=== PATIENT | male | born 1985 | race Caucasian/White ===

== ENCOUNTER 2017-04-18 20:47 | Emergency (ER) | payer OTHER ==
[~2017-04-18] VITALS: Ht 185.4 cm; Wt 103.9 kg
[~2017-04-18 20:47] MED LIST: CLIN150C99 PO; TRETINOIN PO
[2017-04-18 20:53] VITALS: BP 121/75
--- NOTE | 2017-04-18 21:12 | NUR ---
PT TAKEN TO XRAY FROM THE LOBBY
--- NOTE | 2017-04-18 22:03 | NUR ---
PT TAKEN TO OF3
--- NOTE | 2017-04-18 22:07 | NUR ---
PA STUDENT XENA EVALUATING PATIENT
[2017-04-18] MEDS ORDERED: IBUPROFEN 600 MG TAB PO ONE (22:15)
[2017-04-18] MEDS ORDERED: ACETAMINOPHEN/CODEINE 300/30MG 1 TAB PO ONE (22:15)
[2017-04-18] MEDS ORDERED: KETOROLAC 30 MG/ML VIAL IM ONE (22:20)
[2017-04-18 23:16] VITALS: BP 125/72
--- NOTE | 2017-04-18 23:17 | NUR ---
Patient discharged with v/s stable. Written and verbal after care instructions given and explained. Patient alert, oriented and verbalized understanding of instructions. Ambulatory with steady gait. All questions addressed prior to discharge. ID band removed. Patient advised to follow up with PMD. Rx of NAPROSYN, TYLENOL WITH COD#3 given. Patient educated on indication of medication including possible reaction and side effects. Opportunity to ask questions provided and answered.
== END 2017-04-18 23:17 | disposition home or self-care (01) ==
LOC: MED 20:47
DX: S62.316A Displaced fracture of base of fifth metacarpal bone, right hand, initial encounter for closed fracture (principal); Z88.1 Allergy status to other antibiotic agents; Z88.8 Allergy status to other drugs, medicaments and biological substances; Z85.6 Personal history of leukemia; W22.8XXA Striking against or struck by other objects, initial encounter; Y93.89 Activity, other specified; Y92.89 Other specified places as the place of occurrence of the external cause; Y99.8 Other external cause status
CPT/HCPCS: 29125; 73130; 96372; 99284; J1885

== ENCOUNTER 2020-09-13 18:34 | Emergency (ER) | payer OTHER ==
[~2020-09-13] VITALS: Ht 185.4 cm; Wt 106.6 kg
[~2020-09-13 18:34] MED LIST changes: +CLIN-223 PO; -CLIN150C99 PO
[2020-09-13 19:08] VITALS: BP 131/94
--- NOTE | 2020-09-13 19:45 | NUR ---
SEEN AND EXAMINED BY PERLITA WITH ORDERS AND CARRIED OUT
--- NOTE | 2020-09-13 19:50 | NUR ---
SWAB DONE AND SENT TO LAB.
--- NOTE | 2020-09-13 21:15 | NUR ---
PTS RIGHT ANKLE WAS PLACED IN A ANKEL STIRRUP, PTS PMSC WNL. PT WAS ALSO GIVEN CRUTCHES, PT SHOWED GOOD USE OF CRUTCHES.
[2020-09-13 22:05] VITALS: BP 131/94
--- NOTE | 2020-09-13 22:05 | NUR ---
Patient discharged with v/s stable. Written and verbal after care instructions given and explained. Patient alert, oriented and verbalized understanding of instructions. Ambulatory with . All questions addressed prior to discharge. ID band removed. Patient advised to follow up with PMD. Rx of ALBUTEROL, NAPROSYN 500MG, GUAIATUSSIB AC given. Patient educated on indication of medication including possible reaction and side effects. Opportunity to ask questions provided and answered.
--- NOTE | 2020-09-15 12:48 | NUR ---
Covid results received from lab. Results = POSITIVE. Hard copy requested from lab and placed in infection controls mailbox.
== END 2020-09-13 22:05 | disposition home or self-care (01) ==
LOC: MED 18:34
DX: S93.401A Sprain of unspecified ligament of right ankle, initial encounter (principal); Z20.828 Contact with and (suspected) exposure to other viral communicable diseases; J06.9 Acute upper respiratory infection, unspecified; Z79.899 Other long term (current) drug therapy; Z88.1 Allergy status to other antibiotic agents; Z85.6 Personal history of leukemia; X58.XXXA Exposure to other specified factors, initial encounter; Y93.89 Activity, other specified; Y92.89 Other specified places as the place of occurrence of the external cause; Y99.8 Other external cause status
CPT/HCPCS: 29515; 71045; 73620; 99284; U0003

== ENCOUNTER 2021-08-06 12:24 | Emergency (ER) | payer OTHER ==
[~2021-08-06] VITALS: Ht 185.4 cm; Wt 108.0 kg
[2021-08-06 12:51] VITALS: BP 139/67
--- NOTE | 2021-08-06 13:00 | NUR ---
PT SENT TO LOBBY
--- NOTE | 2021-08-06 14:08 | NUR ---
PT AMBULATED TO BED
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
--- NOTE | 2021-08-06 14:22 | NUR ---
DR ANDERSON AT BEDSIDE EVALUATING PT
[2021-08-06] MEDS ORDERED: SULFAMETH/TRIMETH DS 800/160MG 1 TAB PO ONE (14:30)
[2021-08-06] MEDS ORDERED: ACETAMINOPHEN EXTRA STRENGTH 500 MG TAB PO ONE (14:30)
[2021-08-06] MEDS ORDERED: BACITRACIN OINT 500 UNITS/GM PKT TP ONE (14:30)
[2021-08-06] MEDS ORDERED: cephALEXin 500 MG CAP PO ONE (14:30)
[2021-08-06] MEDS ORDERED: SULF-59 PO (14:31)
[2021-08-06] MEDS ORDERED: IBUP-2213 PO (14:31)
[2021-08-06] MEDS ORDERED: CEPH-588 PO (14:31)
--- NOTE | 2021-08-06 14:35 | NUR ---
Crutches dispensed. Taught proper use, patient returned demo.
[2021-08-06 14:57] VITALS: BP 139/67
--- NOTE | 2021-08-06 14:57 | NUR ---
Patient discharged with v/s stable. Written and verbal after care instructions given and explained. Patient alert, oriented and verbalized understanding of instructions. Ambulatory with steady gait. All questions addressed prior to discharge. ID band removed. Patient advised to follow up with PMD. Rx of KEFLEX, IBUPROFEN, AND BACTRIM given. Patient educated on indication of medication including possible reaction and side effects. Opportunity to ask questions provided and answered.
== END 2021-08-06 14:57 | disposition home or self-care (01) ==
LOC: MED 12:24
DX: S81.831A Puncture wound without foreign body, right lower leg, initial encounter (principal); Z79.2 Long term (current) use of antibiotics; Z88.0 Allergy status to penicillin; Z88.1 Allergy status to other antibiotic agents; W34.09XA Accidental discharge from other specified firearms, initial encounter; Y93.89 Activity, other specified; Y92.89 Other specified places as the place of occurrence of the external cause; Y99.8 Other external cause status
CPT/HCPCS: 73590; 99284

== ENCOUNTER 2021-10-21 23:45 | Emergency (ER) | payer OTHER ==
[~2021-10-21] VITALS: Ht 185.4 cm; Wt 105.2 kg
[~2021-10-21 23:45] MED LIST changes: +CEPH-588 PO; +IBUP-2213 PO; +SULF-59 PO
[2021-10-22 00:13] VITALS: BP 116/82
--- NOTE | 2021-10-22 00:20 | NUR ---
PT IS IN TENT PER REQUEST.
[2021-10-22] MEDS ORDERED: PRED20TA5 PO (00:49)
[2021-10-22] MEDS ORDERED: LORA1T1237 PO (00:49)
[2021-10-22] MEDS ORDERED: BENZ200C4 PO (00:49)
[2021-10-22] MEDS ORDERED: PROM118S5 PO (00:49)
--- NOTE | 2021-10-22 01:00 | NUR ---
SWABS COLLECTED AND TKEN TO LAB
[2021-10-22 01:01] VITALS: BP 116/82
--- NOTE | 2021-10-22 01:01 | NUR ---
Patient discharged with v/s stable. Written and verbal after care instructions given and explained. Patient alert, oriented and verbalized understanding of instructions. Ambulatory with steady gait. All questions addressed prior to discharge. ID band removed. Patient advised to follow up with PMD. Rx of CLARITIN, PREDNISONE, AND PROMETHAZINE given. Patient educated on indication of medication including possible reaction and side effects. Opportunity to ask questions provided and answered.
== END 2021-10-22 01:01 | disposition home or self-care (01) ==
LOC: MED 23:45
DX: B34.9 Viral infection, unspecified (principal); Z20.822 Contact with and (suspected) exposure to COVID-19
CPT/HCPCS: 99283; U0003

== ENCOUNTER 2022-07-09 03:03 | Emergency (ER) | payer OTHER ==
[~2022-07-09] VITALS: Ht 185.4 cm; Wt 103.0 kg
[~2022-07-09 03:03] MED LIST changes: +BENZ200C4 PO; +LORA1T1237 PO; +PRED20TA5 PO; +PROM118S5 PO
[2022-07-09 03:11] VITALS: BP 151/96
--- NOTE | 2022-07-09 03:20 | NUR ---
PT TO BED 5 PLACED ON TERRA COTTA MOLD MAKER. ROWAND MADE AWARE.
[2022-07-09] MEDS ORDERED: LORazepam 2 MG/ML VIAL IVP ONE (03:30)
[2022-07-09 04:13] LABS: BASOPHILS % (AUTO) 0.4 % (0.0-2.0); EOSINOPHILS % (AUTO) 0.5 % (0.0-4.0); HEMATOCRIT 46.2 % (36-52); LYMPHOCYTES # (AUTO) 1.6 K/uL (2.0-11.5); MEAN CORPUSCULAR HEMOGLOBIN 33 pg (27-31); MEAN CORPUSCULAR HGB CONC 35 g/dL (33-37); MEAN CORPUSCULAR VOLUME 95.3 fL (80-94); MONOCYTES # (AUTO) 0.6 K/uL (0.8-1.0); MONOCYTES % (AUTO) 9.2 % (1.7-9.3); NEUTROPHILS # (AUTO) 3.9 K/uL (1.8-7.7); NEUTROPHILS % (AUTO) 63.9 % (42.2-75.2); PLATELET COUNT (AUTO) 230 K/uL (140-450); RED BLOOD CELL COUNT(AUTO) 4.85 MIL/uL (4.20-6.10); RED CELL DISTRIBUTION WIDTH 13.2 % (11.6-13.7); WHITE BLOOD COUNT (AUTO) 6.1 K/uL (4.8-10.8)
[2022-07-09 04:51] LABS: ALBUMIN 3.8 g/dL (3.4-5.0); ASPARTATE AMINOTRANSFERASE 13 U/L (15-37); CARBON DIOXIDE 25.2 mmol/L (21-32); CHLORIDE 103 mmol/L (98-107); CREATININE 1.1 mg/dL (0.6-1.3); GFR ARICAN-AMERICAN 97 mL/min (>90); GLUCOSE 110 mg/dL (74-106); POTASSIUM 3.2 mmol/L (3.5-5.1); SODIUM SERUM 139 mmol/L (136-145); TOTAL BILIRUBIN 0.4 mg/dL (0.0-1.0); UREA NITROGEN, BLOOD 18 mg/dL (7-18)
[2022-07-09] MEDS ORDERED: ACETAMINOPHEN EXTRA STRENGTH 500 MG TAB PO ONE (05:00)
[2022-07-09 05:53] VITALS: BP 128/76
--- NOTE | 2022-07-09 05:53 | NUR ---
Patient discharged with v/s stable. Written and verbal after care instructions given and explained. Patient verbalized understanding. Ambulatory with steady gait. All questions addressed prior to discharge. Advised to follow up with PMD.
[2022-07-10] MEDS ORDERED: IBUP-2213 PO (15:14)
[2022-07-10] MEDS ORDERED: NALO4SPR NS (15:20)
== END 2022-07-09 05:53 | disposition home or self-care (01) ==
LOC: MED 03:03
DX: F43.20 Adjustment disorder, unspecified (principal); F15.129 Other stimulant abuse with intoxication, unspecified
CPT/HCPCS: 36415; 71045; 80053; 84484; 85025; 93005; 96374; 99285; J2060; Q0092

== ENCOUNTER 2022-07-10 11:44 | Emergency (ER) | payer OTHER ==
[~2022-07-10] VITALS: Ht 185.4 cm; Wt 103.0 kg
[2022-07-10 11:55] VITALS: BP 150/110
--- NOTE | 2022-07-10 12:54 | NUR ---
pt refused covid test. notified dr millan.
[2022-07-10] MEDS ORDERED: NITROGLYCERIN 0.4 MG TAB SL ONE (12:55)
--- NOTE | 2022-07-10 12:55 | NUR ---
36 y/o male biba, pt presents to ed with c/o heart palpitations, cp, sensation "hot" in his chest. pt was here yesterday for same c/o, pt states he smoked meth yesterday again. pmh: meth use allergy: piperacillin, tazobactam med: denies
--- NOTE | 2022-07-10 12:55 | NUR ---
Patient being evaluated by DR ROSA at bedside.
[2022-07-10] MEDS ORDERED: LORazepam 1 MG TAB PO ONE (13:00)
[2022-07-10] MEDS ORDERED: KETOROLAC 60 MG/2 ML VIAL IM ONE (13:00)
[2022-07-10 13:49] LABS: BASOPHILS % (AUTO) 0.5 % (0.0-2.0); EOSINOPHILS % (AUTO) 0.5 % (0.0-4.0); HEMATOCRIT 46.3 % (36-52); LYMPHOCYTES # (AUTO) 1.4 K/uL (2.0-11.5); LYMPHOCYTES % (AUTO) 23.5 % (20.5-51.1); MEAN CORPUSCULAR HEMOGLOBIN 33 pg (27-31); MEAN CORPUSCULAR HGB CONC 35 g/dL (33-37); MEAN CORPUSCULAR VOLUME 95.3 fL (80-94); MONOCYTES # (AUTO) 0.5 K/uL (0.8-1.0); MONOCYTES % (AUTO) 8.3 % (1.7-9.3); NEUTROPHILS % (AUTO) 67.2 % (42.2-75.2); PLATELET COUNT (AUTO) 228 K/uL (140-450); RED BLOOD CELL COUNT(AUTO) 4.85 MIL/uL (4.20-6.10); RED CELL DISTRIBUTION WIDTH 13.2 % (11.6-13.7)
[2022-07-10 14:09] LABS: ANION GAP 12.6 (8-16); CARBON DIOXIDE 24.8 mmol/L (21-32); CREATININE 0.8 mg/dL (0.6-1.3); POTASSIUM 3.4 mmol/L (3.5-5.1); TOTAL BILIRUBIN 0.8 mg/dL (0.0-1.0)
--- NOTE | 2022-07-10 15:09 | NUR ---
Patient being evaluated by dr Melendez at [facility].
[2022-07-10] MEDS ORDERED: IBUP-2213 PO (15:14)
[2022-07-10] MEDS ORDERED: NALO4SPR NS (15:20)
--- NOTE | 2022-07-10 15:23 | NUR ---
Patient discharged with v/s stable. Written and verbal after care instructions given and explained. Patient alert, oriented and verbalized understanding of instructions. Ambulatory with family to car. All questions addressed prior to discharge. ID band removed. Patient advised to follow up with PMD. Rx of nalaxone, ibuprofen (sent) given. Patient educated on indication of medication including possible reaction and side effects. Opportunity to ask questions provided and answered. copy of labs, xray and mental health packet given
[2022-07-10 15:28] VITALS: BP 150/110
== END 2022-07-10 15:28 | disposition home or self-care (01) ==
LOC: MED 11:44
DX: R07.9 Chest pain, unspecified (principal); R00.2 Palpitations; F41.9 Anxiety disorder, unspecified; Z88.1 Allergy status to other antibiotic agents; Z79.899 Other long term (current) drug therapy; Z85.6 Personal history of leukemia
CPT/HCPCS: 36415; 71045; 80053; 84484; 85025; 93005; 96372; 99285; J1885

== ENCOUNTER 2022-07-19 06:20 | Emergency (ER) | payer OTHER ==
[~2022-07-19] VITALS: Ht 185.4 cm; Wt 102.5 kg
[~2022-07-19 06:20] MED LIST changes: +NALO4SPR NS
[2022-07-19 06:27] VITALS: BP 138/87
--- NOTE | 2022-07-19 06:34 | NUR ---
Patient stated "I did methamphetamines and now my chest hurts." Patient walked with strong gait to room 3, placed on monitor. Patient resting comfortably in bed.
--- NOTE | 2022-07-19 06:50 | NUR ---
ermd at bedside
[2022-07-19] MEDS ORDERED: ASPIRIN 81 MG TAB.CHEW PO ONE (06:55)
[2022-07-19] MEDS ORDERED: LORazepam 2 MG/ML VIAL IVP ONE (06:55)
[2022-07-19] MEDS ORDERED: NACL 0.9% 1,000 ML IV ONE (06:55)
--- NOTE | 2022-07-19 07:12 | NUR ---
rad at bedside
--- NOTE | 2022-07-19 07:20 | NUR ---
Report recieved from YENIFER Whittington for transfer of care.
--- NOTE | 2022-07-19 07:20 | NUR ---
46YR OLD MALE BIB SELF C/O JOSH FOOT PAIN /SI . PT IS ON A 5[address] BY [employer]. PT STATED HE WANTS TO HARM HIMSELF BY RUNNING INTO TRAFFIC. DENIES HAVING ANY SI HX. PT IS A&OX4 SKIN WARM PINK AND DRY. PT SITTING IN BED GOWN ON. HOB ELEVATED. RESP EVEN AND UNLABORED. PT HAS JOSH BLISTERING IN FEET. STATES HE HAS A CHRONIC PROBLE WITH BLISTERS IN FEET. PAIN LEVEL 10/10. FEET ART UNCOVERED AND EXPOSED TO AIR NKDA NOKNOWN HX
[2022-07-19 07:25] LABS: BASOPHILS % (AUTO) 0.5 % (0.0-2.0); EOSINOPHILS # (AUTO) 0.1 K/uL (0-0.4); EOSINOPHILS % (AUTO) 1.4 % (0.0-4.0); HEMATOCRIT 45.9 % (36-52); LYMPHOCYTES # (AUTO) 2.4 K/uL (2.0-11.5); LYMPHOCYTES % (AUTO) 35.7 % (20.5-51.1); MEAN CORPUSCULAR HEMOGLOBIN 34 pg (27-31); MEAN CORPUSCULAR HGB CONC 35 g/dL (33-37); MEAN CORPUSCULAR VOLUME 96.2 fL (80-94); MONOCYTES # (AUTO) 0.7 K/uL (0.8-1.0); MONOCYTES % (AUTO) 10.2 % (1.7-9.3); NEUTROPHILS # (AUTO) 3.5 K/uL (1.8-7.7); NEUTROPHILS % (AUTO) 52.2 % (42.2-75.2); PLATELET COUNT (AUTO) 214 K/uL (140-450); RED BLOOD CELL COUNT(AUTO) 4.77 MIL/uL (4.20-6.10); WHITE BLOOD COUNT (AUTO) 6.7 K/uL (4.8-10.8)
[2022-07-19 07:44] LABS: ALBUMIN 3.9 g/dL (3.4-5.0); ANION GAP 14.3 (8-16); CARBON DIOXIDE 26.1 mmol/L (21-32); CREATININE 0.9 mg/dL (0.6-1.3); POTASSIUM 3.4 mmol/L (3.5-5.1); TOTAL BILIRUBIN 0.7 mg/dL (0.0-1.0)
[2022-07-19] MEDS ORDERED: KETOROLAC 15 MG/ML VIAL IVP ONE (08:10)
[2022-07-19] MEDS ORDERED: LORA-476 PO (08:18)
--- NOTE | 2022-07-19 08:20 | NUR ---
Dr. Ledbetter re-evaluating patient at bedside.
[2022-07-19 09:03] VITALS: BP 132/88
--- NOTE | 2022-07-19 09:03 | NUR ---
Patient discharged with v/s stable. Written and verbal after care instructions given. Patient alert, oriented and verbalized understanding of instructions. Ambulatory with steady gait. All questions addressed prior to discharge. ID band removed. Patient advised to follow up with PMD. Rx of Ativan given. Opportunity to ask questions provided and answered.
--- NOTE | 2022-07-19 09:10 | NUR ---
The patient's care was reviewed and supervised by ED Agency Nurse 9, RN, RN.
== END 2022-07-19 09:03 | disposition home or self-care (01) ==
LOC: MED 06:20
DX: F41.9 Anxiety disorder, unspecified (principal); R06.02 Shortness of breath; F17.200 Nicotine dependence, unspecified, uncomplicated; F15.90 Other stimulant use, unspecified, uncomplicated; C95.91 Leukemia, unspecified, in remission; Z88.1 Allergy status to other antibiotic agents
CPT/HCPCS: 36415; 71045; 80053; 81002; 83880; 84484; 85025; 93005; 96361; 96374; 99285; J1885; J2060; J7030; Q0092